=== PATIENT | male | born 1975 | race African-American/Black ===

== ENCOUNTER 2021-01-06 13:17 | Outpatient (CLI) | payer OTHER | END 2021-01-06 13:18 | disposition home or self-care (01) | LOC: ULT 13:17 | PROVIDERS: ATTEND Internal Medicine | DX: R01.1 Cardiac murmur, unspecified (principal); E78.5 Hyperlipidemia, unspecified; I11.9 Hypertensive heart disease without heart failure; Z79.899 Other long term (current) drug therapy; I08.1 Rheumatic disorders of both mitral and tricuspid valves | CPT/HCPCS: 93306 ==

== ENCOUNTER 2022-06-11 11:03 | Emergency (ER) | payer OTHER ==
[2022-06-11] MEDS ORDERED: Lisinopril 10 MG TAB ONE (12:11)
[2022-06-11] MEDS ORDERED: NIFEdipine XL 60 MG TAB PO SCH (12:15)
== END 2022-06-11 12:47 | disposition home or self-care (01) ==
LOC: ERS 11:03
DX: I10 Essential (primary) hypertension (principal); G40.909 Epilepsy, unspecified, not intractable, without status epilepticus; F17.210 Nicotine dependence, cigarettes, uncomplicated; Z79.899 Other long term (current) drug therapy
CPT/HCPCS: 99283